=== PATIENT | female | born 1950 | race Caucasian/White ===

== ENCOUNTER 2020-02-05 01:30 | Inpatient (IN) | payer OTHER, SELFPAY ==
[~2020-02-05] VITALS: Ht 152.4 cm; Wt 82.1 kg
[2020-02-05 01:30] VITALS: BP 85/48
--- NOTE | 2020-02-05 01:30 | NUR ---
[facility] RUN #[id number]
--- NOTE | 2020-02-05 01:40 | NUR ---
69 YEAR OLD FEMALE BIBA FROM [facility] FOR COUGH, ALOC, AND UTI. PER EMS PATIENT HAS A UTI AND IS TAKING ANTIBIOTICS FOR IT. PT AOX3 TO NAME, , AND LOCATION, BUT HAS HARD TIME CONCENTRATION AND HAS DIFFICULTY ANSWERING QUESTIONS. PATIENT WITH COUGH AND CONGESTION, POOR HISTORIAN. SPO2 78% ON RA, PT PLACED ON 4L O2 NC. PATIENT BREATHING EVEN AND UNLABORED, LUNGS CLEAR BL, SKIN WARM AND DRY. BED IN LOWEST POSITION, LOCKED, BED RAIL UPX1. PMH - DM2, HYPOTHYROIDISM, HYPERTENSION, ANXIETY, MUSCLE WEAKNESS ALLERGIES - CEPHALEXIN, CODEINE
--- NOTE | 2020-02-05 02:00 | NUR ---
CORONAVIRUS, RSV, AND INFLUENZA SWAB TAKEN
--- NOTE | 2020-02-05 02:10 | NUR ---
bp 83/48, ermd made aware
[2020-02-05] MEDS ORDERED: NACL 0.9% 1,000 ML IV ONE (02:20)
[2020-02-05 02:32] LABS: BASOPHILS % (AUTO) 0.1 % (0.0-2.0); HEMATOCRIT 28.7 % (36-48); LYMPHOCYTES # (AUTO) 1.2 K/uL (2.5-16.5); MEAN CORPUSCULAR HEMOGLOBIN 28 pg (27-31); MEAN CORPUSCULAR HGB CONC 32 g/dL (33-37); MEAN CORPUSCULAR VOLUME 89.9 fL (80-94); MONOCYTES # (AUTO) 0.9 K/uL (0.8-1.0); MONOCYTES % (AUTO) 4.8 % (1.7-9.3); NEUTROPHILS # (AUTO) 15.7 K/uL (1.8-7.7); NEUTROPHILS % (AUTO) 88.2 % (42.2-75.2); PLATELET COUNT (AUTO) 355 K/uL (140-450); RED CELL DISTRIBUTION WIDTH 16.1 % (11.6-13.7)
[2020-02-05 02:39] LABS: C-REACTIVE PROTEIN QUANT 6.1 mg/dL (0.0-0.9)
--- NOTE | 2020-02-05 02:40 | NUR ---
BP 104/32. ERMD MADE AWARE
[2020-02-05 02:45] LABS: LACTATE DEHYDROGENASE 235 U/L (81-234)
[2020-02-05 02:48] LABS: PROTHROMBIN TIME 9.4 secs (10.8-13.4)
[2020-02-05 02:51] LABS: ANION GAP 19.7 (8-16); ASPARTATE AMINOTRANSFERASE 81 U/L (15-37); CARBON DIOXIDE 16.7 mmol/L (21-32); CHLORIDE 103 mmol/L (98-107); CREATININE 2.2 mg/dL (0.6-1.3); GLUCOSE 59 mg/dL (74-106); POTASSIUM 5.4 mmol/L (3.5-5.1); SODIUM SERUM 134 mmol/L (136-145); TOTAL BILIRUBIN 0.2 mg/dL (0.0-1.0)
[2020-02-05 02:56] LABS: LYMPHOCYTES % (AUTO) 6.9 % (20.5-51.1); WHITE BLOOD COUNT (AUTO) 17.9 K/uL (4.8-10.8)
[2020-02-05 03:02] LABS: D-DIMER > 5000 ng/ml (0-400)
--- NOTE | 2020-02-05 03:05 | NUR ---
MULTIPLE ATTEMPTS MADE BY NURSES TO INSERT ANOTHER IV LINE, UNABLE TO GET SECOND IV LINE. ERMD MADE AWARE
[2020-02-05 03:08] LABS: UREA NITROGEN, BLOOD 119 mg/dL (7-18)
--- NOTE | 2020-02-05 03:11 | NUR ---
BP 98/42. ERMD AWARE
[2020-02-05 03:12] LABS: FIBRINOGEN 875 mg/dL (200-400)
[2020-02-05 03:13] LABS: APPEARANCE,URINE CLOUDY (CLEAR); BILIRUBIN,URINE NEGATIVE (NEGATIVE); BLOOD, URINE 1+ (NEGATIVE); COLOR,URINE YELLOW (YELLOW); LEUKOCYTE ESTERASE ,URINE 3+ (NEGATIVE); NITRITE, URINE POSITIVE (NEGATIVE); PH,URINE 8.5 (5.0-9.0); UGLUCOSE NEGATIVE (NEGATIVE)
[2020-02-05 03:15] LABS: RSV NEGATIVE (NEGATIVE)
[2020-02-05 03:25] LABS: RBC,URINE 11-20 (MOD) /HPF (0-5); WBC,URINE TOO MANY TO COUNT /HPF (0-5)
[2020-02-05] MEDS ORDERED: PIPERACILLIN/TAZOBACTAM 3.375 GM in DEXTROSE 5% 50 ML IV ONE (03:30)
[2020-02-05] MEDS ORDERED: DEXTROSE 10% 250 ML IV SCH (03:30)
[2020-02-05] MEDS ORDERED: AZITHROMYCIN 500 MG in DEXTROSE 5% 250 ML IV ONE (03:30)
[2020-02-05] MEDS ORDERED: PIPERACILLIN/TAZOBACTAM 3.375 GM VIAL IV ONE (03:31)
[2020-02-05] MEDS ORDERED: AZITHROMYCIN 500 MG INJ VIAL IV ONE (03:45)
[2020-02-05] MEDS ORDERED: ONDANSETRON 4 MG/2 ML VIAL IVP PRN (04:05)
[2020-02-05] MEDS ORDERED: LORazepam 2 MG/ML VIAL IVP PRN (04:05)
[2020-02-05] MEDS ORDERED: HEPARIN PER PHARMACY MC PRN (04:10)
[2020-02-05] MEDS ORDERED: PIPERACILLIN/TAZOBACTAM 2.25 GM in DEXTROSE 5% 50 ML IV SCH (04:10)
[2020-02-05 05:00] VITALS: BP 96/54
--- NOTE | 2020-02-05 05:00 | NUR ---
RECEIVED PATIENT IN STABLE CONDITION FROM ER VIA [facility] FOR CONTINUITY OF CARE. RESPIRATIONS EVEN, UNLABORED. CONTINUES ON O2 4L VIA NC WITH AN O2SAT 92%. SKIN WARM/DRY AND INTACT. SKIN ASSESSMENT COMPLETED. IV SITE TO LEFT HAND 24G PATENT/INTACT. IV SITE TO LEFT AC 20G PATENT/INTACT, INFUSING FLUIDS WELL. ABDOMEN SOFT, NONTENDER. BOWEL SOUNDS NORMOACTIVE X4 QUADRANTS. ESQUEDA CATHETER PATENT WITH YELLOW URINE DRAINING TO GRAVITY. HOB UP 30 DEGREES. NO C/O PAIN. NO S/SX ACUTE DISTRESS. MRSA SCREEN COMPLETED. ORIENTED PATIENT TO ROOM/STAFF AND CALL LIGHT. SAFETY PRECAUTIONS IN PLACE. ISOLATION PRECAUTIONS OBSERVED. CALL LIGHT WITHIN REACH. WILL CONTINUE TO MONITOR.
--- NOTE | 2020-02-05 05:00 | NUR ---
Patient will be admitted to care of DR NAVARRO. Admited to TELE. Will go to room 117A. Belongings list completed. Report to JUNIOR MADISON.
[2020-02-05] MEDS ORDERED: LISI-420 PO (05:06)
[2020-02-05] MEDS ORDERED: METF850T PO (05:06)
[2020-02-05] MEDS ORDERED: ORE25 PO (05:06)
[2020-02-05] MEDS ORDERED: NITR100C7 PO (05:06)
[2020-02-05] MEDS ORDERED: MELA3TAB56 PO (05:06)
[2020-02-05] MEDS ORDERED: ALBU3SOL83 IH (05:06)
[2020-02-05] MEDS ORDERED: SYN.075 PO (05:06)
[2020-02-05] MEDS ORDERED: MULT1SGL58 PO (05:06)
[2020-02-05] MEDS ORDERED: INSU3INS SQ (05:06)
[2020-02-05] MEDS ORDERED: MAGN400S29 PO (05:06)
[2020-02-05] MEDS ORDERED: GLIP10TA3 PO (05:06)
[2020-02-05] MEDS ORDERED: MULT-153 PO (05:06)
--- NOTE | 2020-02-05 05:30 | NUR ---
PATIENT CONTINUES TO REMOVE OXYGEN TUBING. CONTINUE TO REORIENT WITH LITTLE SUCCESS. WILL MAKE FREQUENT ROUNDS ON PATIENT TO ENSURE EFFECTIVE GAS EXCHANGE.
[2020-02-05] MEDS: LACTATED RINGERS 1,000 ML IV SCH ×2 (07:00→20:31)
--- NOTE | 2020-02-05 07:00 | NUR ---
ENDORSED PATIENT IN STABLE CONDITION TO AM SHIFT NURSE FOR CONTINUITY OF CARE.
--- NOTE | 2020-02-05 07:01 | NUR ---
RECEIVED REPORT FROM FOOD COUNTER WORKER NURSE ANJELICA FOR CONTINUITY OF CARE. PT IN STABLE CONDITION. RESPIRATIONS EVEN AND UNLABORED,02 4L VIA NC. IV INTACT AND PATENT. SAFETY MEASURES IN PLACE. BED IN LOW POSITION. BED ALARM ON. CALL LIGHT AT BEDSIDE. WILL CONTINUE TO MONITOR.
[2020-02-05 08:00] VITALS: BP 98/56
--- NOTE | 2020-02-05 08:57 | NUR ---
PATIENT HAS BEEN SCREENED AND CATEGORIZED MODERATE NUTRITION RISK. PATIENT WILL BE SEEN WITHIN 3-5 DAYS OF ADMISSION. 02/07/20 02/09/[address]
--- NOTE | 2020-02-05 09:00 | NUR ---
TORB TRUMAN ARAMBULA APPLY SOFT WRIST RESTRAINT TO PREVENT DISRUPTION OF MEDICAL CARE. PT IN STABLE CONDITION.
--- NOTE | 2020-02-05 09:35 | NUR ---
Electrotype Servicer Note: Basic Screen: Yes High Risk DC Screen Yes Name: PEDRO PABLO AGGARWAL Home Relationship: NEPHEW/POA Pre-Admission Living Arrangements: SNF Other: [facility] Prior ADL Total/Dependent Current Home Health Name/Tel: N/A Current DME/02 Name/Tel: HOSPITAL BED Current Hospice Name/Tel: N/A Current Dialysis Name/Tel: N/A Healthcare Decision Maker: Next of Kin Other: PEDRO PABLO AGGARWAL Advance Directive No Physician Orders for Life Sustaining Treatment Form No Patient/Family Have Educational Needs No Discipline: Case Mgt/Social Svcs Tentative Discharge Plan/Destination: SNF/ECF Other: [facility] Tentative Discharge Plan Summary: Patient is a 69-year-old female admitted for pneumonia. Patient has PMHX of generalized weakness, hypertension, major depressive dsiorder, and DM type 2. Patient was admitted from [facility]. SW contacted Violet from [facility], patient's nurse [phone]. Per Violet, patient is skilled nursing and currently on a bed hold. Violet reported that patient requires total assistance and is bed bound. Violet stated that patient is alert/oriented at baseline and that patient's POA is patient's nephew Pedro Pablo Aggarwal [phone]. Tentative discharge plan is for patient to return to [facility]. No further needs identified. Signature: GUICHO Connor Date: Feb 05, 2020 Time: 09:33
[2020-02-05] MEDS: hePARIN / DEXT 5% PREMIX 250 ML IV SCH ×3 (10:18→23:49)
--- NOTE | 2020-02-05 11:33 | NUR ---
PT CLEANED AND CHANGED AT THIS TIME. PT TOLERATED WELL. WILL CONTINUE TO MONITOR. BED IN LOW POSITION. BED ALARM ON. CALL LIGHT AT BEDSIDE. WILL CONTINUE TO MONITOR.
[2020-02-05 12:00] VITALS: BP 97/54
--- NOTE | 2020-02-05 13:01 | NUR ---
PATIENT LYING IN BED SLEEP AT THIS TIME. RESPIRATIONS EVEN AND UNLABORED. PATIENT IN STABLE CONDITION. BED IN LOW POSITION. BED ALARM ON. CALL LIGHT AT BEDSIDE. WILL CONTINUE TO MONITOR.
--- NOTE | 2020-02-05 13:57 | NUR ---
DISCHARGE PLANNING: THIS IS A 69 Y/O FEMALE PATIENT FROM [facility], WHO WAS BROUGHT IN DUE TO COUGH AND CONGESTION. PAST MEDICAL HISTORY INCLUDE UTI. INITIAL DIAGNOSIS OF PNEUMONIA. CURRENT LABS INCLUDE WBC 17.9, H/H 9.0/28.7, NA/K 134/5.4, BUN/CREA 119/2.2 AND ALB 2.0. COVID 19 PENDING. NEGATIVE FOR RSV ANTIGEN AND INF A AND B. ON AZITHROMYCIN. NO CONSULTS YET AT THIS TIME. DC PLAN BACK TO [facility] ONCE STABLE. Addendum: 02/06/20 at 1200 by Xiomara Hathaway KELLY MIX [facility] UPDATED OF THE PATIENT'S CONDITION. SHE PROVIDED MO AUTH [id number] FOR [facility] IF IN CASE THE PATIENT WILL BE DC'D. SHE ALSO REQUESTED CLINICALS AND DC ORDER ONCE AVAILABLE. GARY IS CONSULTED FOR BRENDA - BUN/CREA 114/1.9. VQ SCAN SHOWED LOW PROBABILITY FOR PULMONARY EMBOLUS. SEEN BY ID - CONTINUE CONTACT AND DROPLET PRECAUTIONS. COVID 19 TEST STILL PENDING. ON LEVOFLOXACIN AND CLINDAMYCIN. ON HEPARIN DRIP - PTT 127.5 AND D DIMER >5000. DC PLAN BACK TO [facility] ONCE STABLE. Addendum: 02/06/20 at 1444 by Xiomara Hathaway CM COVID TEST CAME BACK POSITIVE. LILIAM CRAWFORD AND KELLY MIX [facility] MADE AWARE. Addendum: 02/06/20 at 1503 by Xiomara Hathaway CM OZZY REQUESTED COPY OF POSITIVE COVID RESULTS. RESULTS SENT. Addendum: 02/07/20 at 1317 by Xiomara Hathaway CM COVID POSITIVE. CURRENT LABS INCLUDE WBC 12.3, H/H 8.0/24.9, NA/K 145/4.6, BUN/CREA 93/1.6 AND MAG 1.3. ON PLAQUENIL, ZITHROMAX AND HEPARIN DRIP. ON OXYMIZER AT 6 LPM, O2 SAT 99%. PULMO, NEPHRO AND ID CONSULTS IN PLACE. DC PLAN PENDING ON PATIENT'S RESPONSE TO TREATMENT. Addendum: 02/07/20 at 1319 by Xiomara Hathaway CM SEEN BY NEPHRO-NO ACUTE REQUIREMENT FOR DIALYSIS AT THIS TIME. SEEN BY DIMAS-CONTINUE SUPPLEMENTAL O2. KEEP O2 SATS 90-94%, AVOID OVER OXYGENATION. Addendum: 02/07/20 at 1559 by Xiomara BRobi Gilmoredijo CM DR. NAVARRO SPOKE TO US, STATING THAT HE WANTS TO DISCHARGE THE PATIENT BACK TO THE FACILITY. I INFORMED HIM THAT JARED CRAWFORD IS REQUESTING 2 NEGATIVE TESTS BEFORE ACCEPTING THE PATIENT BACK. HE STATED "I AM THE DOCTOR AND YOU'RE JUST CALENDER WIND UP TENDER. PATIENT WILL BE POSITIVE FOR 2 WEEKS AND THERE IS NO SUCH TREATMENT FOR COVID." KELLY OF [facility] MADE AWARE, SHE STATED SHE WILL REACH OUT TO THE PLACEMENT TEAM AND WILL GET BACK TO ME WHAT THEY SAY. WILL FOLLOW UP. Addendum: 02/07/20 at 1603 by Xiomara Hathaway CM PRIMARY RN ADDI MADE AWARE AND RECOMMENDED TO CLARIFY WITH ID IF OK TO DISCHARGE. Addendum: 02/08/20 at 5244 by Xiomara Hathaway CM CONTACTED [facility] AT [phone], ABLE TO SPEAK TO RICKY. SHE PROVIDED ME THEIR COVID ADMISSION NUMBER AT [phone]. CONTACTED THE PROVIDED NUMBER, ABLE TO SPEAK TO [facility]. SHE CONFIRMED THAT THEY ARE ABLE TO TAKE COVID POSITIVE PATIENTS HOWEVER NOT ON VENTS YET. SHE PROVIDED ME WITH FAX NUMBER [phone] TO SEND REFERRAL. REFERRAL SENT. WILL FOLLOW UP. Addendum: 02/08/20 at 1417 by Xiomara Hathaway CM PER [facility], THEY ARE ABLE TO ACCEPT PATIENT ONCE READY FOR DISCHARGE. PATIENT WILL GO TO ROOM 204A UNDER DR. VALENCIA. KELLY OF [facility] MADE AWARE. SHE PROVIDED ME WITH AUTH [id number] FOR SNF AND FOR TRANSPORT ([facility], OR [facility], AND/OR [facility] ) [id number]. CHARGE NURSE MADE AWARE AND REQUESTED TO CALL THIS EXPERIMENTAL MECHANIC ELECTRICAL ONCE DR. NAVARRO AND/OR DR FISHER MAKE THEIR ROUNDS. Addendum: 02/08/20 at 1647 by Xiomara Hathaway CM RECEIVED AN ORDER FOR HOSPICE EVALUATION WITH [facility]. CLARIFIED ORDER WITH DR. NAVARRO, "HE STATED MAYBE IN ONE TO 2 DAYS." HE ALSO STATED THAT HE SPOKE TO THE THE PATIENT'S NEPHEW. CONTACTED PATIENT'S NEPHEW [phone] TO DISCUSS DC PLANNING AND IS IN AGREEMENT. HE STATED HE WANTS THE PATIENT TO COME HOME. HE ALSO STATED THAT HE DOES NOT WANT THE PATIENT TO GO BACK TO [facility], WHEN ASKED WHY HE STATED "WE JUST DO NOT LIKE THE PLACE." I ALSO ASKED HIM IF HE IS AWARE THAT THE PATIENT IS POSITIVE FOR COVID. ALL QUESTIONS AND CONCERNS ANSWERED. I ALSO INFORMED HIM THAT WE HAVE AN ACCEPTING FACILITY [facility] IN [place]. HE STATED HE IS OK WITH THAT WELL. HE ALSO STATED THAT HE IS THE MEDICAL DECISION MAKER AND CAN FAX ME A COPY. PROVIDED HIM OF OUR FAX NUMBER. CONTACTED [facility] AT [phone], ABLE TO SPEAK TO GEORGE. SHE PROVIDED ME WITH THE FAX NUMBER [phone] TO SEND REFERRAL. CLINICALS SENT. Addendum: 02/08/20 at 1652 by Xiomara Hathaway CM ORDER SENT TO [facility]. Addendum: 02/10/20 at 0837 by Jose Yin OTÑA followed up with [facility] [phone]. TOÑA left VM. TOÑA will follow up. Addendum: 02/10/20 at 1116 by Jose PEDRAZA George contacted TOÑA and stated that patient's family requested COVID test. TOÑA spoke with Charge Nurse Dalia who stated that it has not been 7 days since last test. Patient was last tested on 02/06/2020 George stated that family requested results on second test before patient is discharged. TOÑA will follow up. Addendum: 02/10/20 at 1425 by Jose PEDRAZA TOÑA spoke with Kelly from [facility]. Per Kelly, patient will go to [facility]. TOÑA spoke with patient's niece, Ly. Ly stated that she is unable to take patient home until patient shows two negative tests for COVID. Addendum: 02/10/20 at 1431 by Jose Yin TOÑA contacted Naren from [facility] [phone]. TOÑA left VM to Naren stating that patient will not be discharged today due to blood transfusion. Addendum: 02/11/20 at 1125 by Xiomara Hathaway CM DC PLAN DISCUSSED WITH DR. THOMAS, HE STATED OK TO DC TO SNF. CONTACTED [facility], SHE STATED BED IS AVAILABLE STILL. INFORMED HER THAT THE FAMILY WANTS TO TAKE THE PATIENT HOME WITH HOSPICE ONCE DONE WITH TREATMENT AND TESTED NEGATIVE FOR COVID. CONTACTED PATIENT'S NEPHEW [facility] AT [phone], NO ANSWER LEFT MESSAGE. CONTACTED GEORGE [facility], SHE STATED SHE WAS ABLE TO SPEAK TO THE NIECE. SHE STATED THAT PER NIECE REGARDLESS OF THE COVID RESULTS, THEY ARE WILLING TO TAKE THE PATIENT HOME, LONG THEY ARE AWARE AND SO THEY CAN PREPARE SINCE THEY HAVE KIDS AT HOME. CONTACTED PATIENT'S NEPHEW AGAIN, NO ANSWER. LEFT MESSAGE. Addendum: 02/11/20 at 1438 by Xiomara Hathaway CM CONTACTED PATIENT'S NEPHEW AGAIN, NO ANSWER. LEFT MESSAGE. DR. MARTHA JONES. CALLED BACK INFORMED HIM THAT THE ORDER FOR SNF IS NOT IN YET. HE STATED TO CONTACT ID FOR ANTIBIOTICS AND FOR HOW LONG. CHARGE NURSE JACQUES MADE AWARE. Addendum: 02/11/20 at 1449 by Xiomara Hathaway CM FOUND ANOTHER CONTACT INFO FROM THE DPOA FOR THE PATIENT'S NEPHEW [phone]. ABLE TO SPEAK TO LY KRAFT (ALTERNATIVE DPOA) AND IS IN AGREEMENT FOR PATIENT TO GO TO A SNF. KELLY OF [facility] MADE AWARE. Addendum: 02/11/20 at 1520 by Xiomara Hathaway CM WILL CALL TRANSPORT WAS SET UP WITH [facility]. Addendum: 02/11/20 at 1545 by Xiomara Hathaway CM UPDATED CLINICALS AND ORDER FAXED TO [facility] AT [phone]. Addendum: 02/11/20 at 1555 by Xiomara Hathaway PER MELI MIX [facility], [facility] SPRINKLER SERVICER WILL BE AT 1900. [facility] OF [facility] AND PRIMARY GRICELDA GRJIALVA MADE AWARE. LEFT MESSAGE TO PATIENT'S NEPHEW [facility] AT [phone].
--- NOTE | 2020-02-05 14:02 | NUR ---
PATIENT SLEEP AT THIS TIME. RESPIRATIONS EVEN AND UNLABORED. PATIENT IN STABLE CONDITION. BED IN LOW POSITION. BED ALARM ON. CALL LIGHT AT BEDSIDE. WILL CONTINUE TO MONITOR
[2020-02-05 16:00] VITALS: BP 88/48
--- NOTE | 2020-02-05 16:49 | NUR ---
PATIENT LOOKING AROUND. ASKED IF SHE WOULD LIKE TO WATCH TV, PATIENT REFUSED. PATIENT IN STABLE CONDITION. BED IN LOW POSITION. BED ALARM ON. CALL LIGHT AT BEDSIDE. WILL CONTINUE TO MONITOR
[2020-02-05] MEDS ORDERED: LEVOFLOXACIN 500 MG/D5W PREMIX 100 ML IV SCH (17:00)
--- NOTE | 2020-02-05 17:11 | NUR ---
OFF UNIT FOR VQ SCAN AT THIS TIME. PATIENT IN STABLE CONDITION.
--- NOTE | 2020-02-05 18:03 | NUR ---
BACK ON UNIT AFTER VQ SCAN. PATIENT IN STABLE CONDITION. BED IN LOW POSITION. BED ALARM ON. CALL LIGHT AT BEDSIDE. WILL CONTINUE TO MONITOR
--- NOTE | 2020-02-05 19:15 | NUR ---
GAVE REPORT TO NICK FOR CONTINUITY OF CARE PT IN STABLE CONDITION.
--- NOTE | 2020-02-05 19:16 | NUR ---
RECEIVED BEDSIDE REPORT FROM DAY RN FOR CONTINUITY OF CARE. PT IS AAOX2-3. PT IN STABLE CONDITION. RESPIRATIONS EVEN AND UNLABORED,02 4L VIA NC. PT WITH 2 IV L HAND 24G INFUSING HEP DRIP AT 11ML/H. LAC 20G INFUSING IV ABX PER ORDERS. PT IS R/O COVID. ISOLATION SIGN AT DOOR. PT SOFT WRIST RESTRAINTS ON R HAND D/T PULLING LINES. SKIN IS INTACT. ESQUEDA CATH DRAINING YELLOW URINE. SAFETY MEASURES IN PLACE. BED IN LOW POSITION. BED ALARM ON. CALL LIGHT AT BEDSIDE. WILL CONTINUE TO MONITOR.
[2020-02-05 20:00] VITALS: BP 83/41
[2020-02-05] MEDS: CLINDAMYCIN 600 MG in DEXTROSE 5% 50 ML IV SCH (20:33)
--- NOTE | 2020-02-05 20:33 | NUR ---
IV ABX NOW INFUSING PER ORDERS. ALL SAFETY MEASURES ARE IN PLACE.
--- NOTE | 2020-02-05 20:55 | NUR ---
PAGED NUCLEAR EQUIPMENT TEST ENGINEER MD NARVAEZ FOR B/P 83/41 HR 79 WILL F/U NEW ORDERS.
[2020-02-05] MEDS ORDERED: NACL 0.9% 500 ML IV SCH (21:00)
[2020-02-05] MEDS ORDERED: MIDODRINE 5 MG TAB ONE (21:39)
--- NOTE | 2020-02-05 21:41 | NUR ---
ADMINISTERED NS 500 BOLUS AND MIDORINE 10MG FOR B/P 83/41 HR 79
--- NOTE | 2020-02-05 23:44 | NUR ---
PTT 31.1 PER PROTOCOL ADMINISTERED 5100U BOLUS AND INCREASED DRIP BY 250U. DRIP NOW INFUSING AT 13.5 WILL ORDER PTT DRAW. VITAL SIGNS STABLE B/P:93/48 HR 76. ALL NEEDS MET. WILL CONTINUE TO MONITOR.
[2020-02-06] VITALS (7 sets, daily range): BP systolic 86–105; BP diastolic 42–54
--- NOTE | 2020-02-06 02:15 | NUR ---
PT IS SLEEPING COMFORTABLY IN BED WITH EYES CLOSED. CHEST RISE AND FALL NOTED. ALL SAFETY MEASURES ARE IN PLACE. CALL LIGHT IS WITHIN REACH.
[2020-02-06] MEDS ORDERED: AZITHROMYCIN 500 MG in DEXTROSE 5% 250 ML IV SCH (05:00)
--- NOTE | 2020-02-06 05:00 | NUR ---
ADMINISTERED MIDROINE 10MG FOR LOW B/P 86/51 HR 70. PT IS ASYMPTOMATIC. WILL CONTINUE TO MONITOR.
[2020-02-06] MEDS ORDERED: CRUSHER, PILL MC ONE (05:05)
[2020-02-06] MEDS: MIDODRINE 5 MG TAB PO SCH ×4 (05:07→23:00)
[2020-02-06] MEDS: CLINDAMYCIN 600 MG in DEXTROSE 5% 50 ML IV SCH (05:07)
--- NOTE | 2020-02-06 06:00 | NUR ---
RECHECK B/P 93/52 HR 70. ALL NEEDS MET AT THIS TIME. CALL LIGHT IS WITHIN REACH. WILL CONTINUE TO MONITOR.
[2020-02-06 06:26] LABS: HEMATOCRIT 26.9 % (36-48); HEMOGLOBIN 8.4 g/dL (12.0-16.0); MEAN CORPUSCULAR HEMOGLOBIN 28 pg (27-31); MEAN CORPUSCULAR HGB CONC 31 g/dL (33-37); MEAN CORPUSCULAR VOLUME 90.4 fL (80-94); PLATELET COUNT (AUTO) 347 K/uL (140-450); RED BLOOD CELL COUNT(AUTO) 2.98 MIL/uL (4.20-5.40); RED CELL DISTRIBUTION WIDTH 16.7 % (11.6-13.7); WHITE BLOOD COUNT (AUTO) 14.5 K/uL (4.8-10.8)
--- NOTE | 2020-02-06 07:10 | NUR ---
SHIFT REPORT RECEIVED FROM METAL FURNITURE ASSEMBLER NURSE. PT IS IN BED SLEEPING BUT RESPONSIVE TO VERBAL STIMULI. PT IS ON HEPARIN DRIP. PT IS ON O2 4L NC. SATURATING AT 92%. SAFETY MEASURES IN PLACE. WILL CONTINUE TO MONITOR. CALL LIGHT IN REACH.
--- NOTE | 2020-02-06 07:10 | NUR ---
GAVE BEDSIDE REPORT TO DAY RN. PT ENDORSED IN STABLE CONDITION.
[2020-02-06 07:13] LABS: ALBUMIN 1.8 g/dL (3.4-5.0); ANION GAP 16.5 (8-16); ASPARTATE AMINOTRANSFERASE 59 U/L (15-37); CARBON DIOXIDE 17.8 mmol/L (21-32); CHLORIDE 107 mmol/L (98-107); CREATININE 1.9 mg/dL (0.6-1.3); GLUCOSE 188 mg/dL (74-106); POTASSIUM 5.3 mmol/L (3.5-5.1); SODIUM SERUM 136 mmol/L (136-145); TOTAL BILIRUBIN 0.2 mg/dL (0.0-1.0)
[2020-02-06 07:25] LABS: UREA NITROGEN, BLOOD 114 mg/dL (7-18)
[2020-02-06 08:53] LABS: BASOPHILS % (MANUAL) 0 % (0-2); EOSINOPHILS % (MANUAL) 0 % (0-4); LYMPHOCYTES % (MANUAL) 9 % (20-46); MONOCYTES % (MANUAL) 5 % (5-12)
[2020-02-06] MEDS: hePARIN / DEXT 5% PREMIX 250 ML IV SCH (09:16)
[2020-02-06] MEDS: LACTATED RINGERS 1,000 ML IV SCH (09:17)
--- NOTE | 2020-02-06 09:30 | NUR ---
PT WAS STARTED ON HEPARIN DRIP. PTT REORDER IN PLACE. WILL CONTINUE TO MONITOR. CALL LIGHT IN REACH.
--- NOTE | 2020-02-06 11:40 | NUR ---
PT IS RESTING IN BED AT THIS TIME. O2 SATS AT 96%. SAFETY MEASURES IN PLACE. WILL CONTINUE TO MONITOR. CALL LIGHT IN REACH.
[2020-02-06] MEDS ORDERED: SODIUM POLYSTYRENE 15 GM/60 ML UDBTL PO SCH (13:00)
--- NOTE | 2020-02-06 13:30 | NUR ---
NOTED WITH SACRAL WOUND. PHOTOGRAPH TAKEN. WOUND CARE NURSE NOTIFIED.
[2020-02-06] MEDS: SODIUM BICARBONATE 8.4% 50 MEQ in DEXT 5% / NACL 0.45% 1,000 ML IV SCH (14:17)
[2020-02-06] MEDS ORDERED: LEVOFLOXACIN 250 MG/D5 PREMIX 50 ML IV SCH (17:00)
[2020-02-06] MEDS: AZITHROMYCIN 250 MG TAB PO SCH (17:10)
--- NOTE | 2020-02-06 17:34 | NUR ---
KAREN RAMIREZ for low BP
--- NOTE | 2020-02-06 17:40 | NUR ---
DR QUINTEROS CALLED BACK ORDERS RECEIVED FOR NS BOLUS DUE TO LOW BLOOD PRESSURE.
[2020-02-06] MEDS ORDERED: NACL 0.9% 1,000 ML IV ONE (17:45)
--- NOTE | 2020-02-06 19:24 | NUR ---
SHIFT REPORT GIVEN TO CLINICAL REVIEW NURSE NURSE. NS BOLUS INFUSING. SAFETY MEASURES IN PLACE.
--- NOTE | 2020-02-06 19:25 | NUR ---
RECEIVED BEDSIDE REPORT FROM DAY SHIFT NURSESAHARA FOR CONTINUITY OF CARE. PT HAS RESPIRATION EVEN AND UNLABORED,O2 4L VIA NC. PT WITH 2 IV L HAND 24G INFUSING HEP DRIP. RA 20G, NS BOLUS. DROPLET, CONTACT ISOLATION FOR COVID19 POSITIVE. PT SOFT WRIST RESTRAINTS ON R HAND D/T PULLING LINES. PRESSURE ULCER ON SACRAL AREA. ESQUEDA CATH DRAINING YELLOW URINE. SAFETY MEASURES IN PLACE. BED IN LOW POSITION. BED ALARM ON. CALL LIGHT AT BEDSIDE. WILL CONTINUE TO MONITOR.
[2020-02-06] MEDS: HYDROXYCHLOROQUINE 200 MG TAB PO SCH (20:35)
--- NOTE | 2020-02-06 20:35 | NUR ---
GIVEN PLAQUENIL MD ORDERED, PT TOLERATED WELL.
[2020-02-06] MEDS ORDERED: MIDODRINE 5 MG TAB PO SCH (21:00)
[2020-02-06] MEDS ORDERED: HYDROXYCHLOROQUINE 200 MG TAB PO SCH (21:00)
--- NOTE | 2020-02-06 21:30 | NUR ---
PT SLEEPING IN BED COMFORTABLY. NO ACUTE DISTRESS NOTED.
--- NOTE | 2020-02-06 23:00 | NUR ---
GIVEN MIDODRINE MD ORDERED. PT TOLERATED WELL.
--- NOTE | 2020-02-06 23:30 | NUR ---
RECEIVED CALL FROM LAB FOR PTT 59.9. NOT REPORTED TO D/T WITHIN THERAPEUTIC RANGE. ORDERED 24HR PTT. HEPARIN DRIP RATE KEPT IN SAME.
[2020-02-07] VITALS: BP 96/49
--- NOTE | 2020-02-07 00:05 | NUR ---
VS CHECKED, WITHIN PT'S BASELINE. WILL CONTINUE TO MONITOR.
--- NOTE | 2020-02-07 01:05 | NUR ---
WOUND CARE PROVIDED, PT TOLERATED WELL.
[2020-02-07] MEDS: SODIUM BICARBONATE 8.4% 50 MEQ in DEXT 5% / NACL 0.45% 1,000 ML IV SCH ×2 (03:27→08:49)
--- NOTE | 2020-02-07 03:58 | NUR ---
CHANGED LINEN, CHANGED BED TO WOUND BED. VS CHECKED, WITHIN PT'S BASELINE
[2020-02-07 04:00] VITALS: BP 17/51
[2020-02-07] MEDS: MIDODRINE 5 MG TAB PO SCH ×4 (05:05→23:57)
--- NOTE | 2020-02-07 05:05 | NUR ---
GIVEN MIDODRINE MD ORDERED. PT TOLERATED WELL.
--- NOTE | 2020-02-07 06:50 | NUR ---
PT IN STABLE CONDITION. WILL ENDORSE PT TO DAY SHIFT NURSE FOR CONTINUOUS CARE.
--- NOTE | 2020-02-07 07:10 | NUR ---
RECEIVED PT. FROM BANK SECRECY ACT OFFICER NURSEGUSTAVO, FOR CONTINUITY OF CARE. PT. IS AWAKE AND IN BED. PT. HAS RESPIRATION EVEN AND UNLABORED WITH O2 4L VIA NC. PT WITH 2 IV L HAND 24G INFUSING HEP DRIP. RA 20G WITH SODIUM BICARBONATE RUNNING AT 75ML/HR. DROPLET, CONTACT ISOLATION FOR COVID19 POSITIVE. PT SOFT WRIST RESTRAINTS ON R HAND D/T PULLING LINES. PRESSURE ULCER ON SACRAL AREA. ESQUEDA CATH DRAINING YELLOW URINE. FALL, ASPIRATION, WOUND PRECAUTIONS IN PLACE. BED IN LOW POSITION. BED ALARM ON. CALL LIGHT AT BEDSIDE. WILL CONTINUE TO MONITOR.
[2020-02-07 08:00] VITALS: BP 119/65
--- NOTE | 2020-02-07 09:02 | NUR ---
FNS CONSULT FOR WOUNDS/PRESSURE ULCERS WAS RECEIVED BY FNS. RD WILL COMPLETE AN INITIAL NUTRITION ASSESSMENT WITHIN 1-[address]
[2020-02-07 09:20] LABS: EOSINOPHILS % (AUTO) 0.1 % (0.0-4.0); HEMATOCRIT 24.9 % (36-48); LYMPHOCYTES # (AUTO) 0.9 K/uL (2.5-16.5); LYMPHOCYTES % (AUTO) 7.1 % (20.5-51.1); MEAN CORPUSCULAR HEMOGLOBIN 28 pg (27-31); MEAN CORPUSCULAR HGB CONC 32 g/dL (33-37); MEAN CORPUSCULAR VOLUME 88.9 fL (80-94); MONOCYTES # (AUTO) 0.6 K/uL (0.8-1.0); MONOCYTES % (AUTO) 4.8 % (1.7-9.3); NEUTROPHILS # (AUTO) 10.8 K/uL (1.8-7.7); PLATELET COUNT (AUTO) 367 K/uL (140-450); RED BLOOD CELL COUNT(AUTO) 2.81 MIL/uL (4.20-5.40); RED CELL DISTRIBUTION WIDTH 16.1 % (11.6-13.7); WHITE BLOOD COUNT (AUTO) 12.3 K/uL (4.8-10.8)
--- NOTE | 2020-02-07 09:28 | NUR ---
Received pt from manager shift. Patient was switched to 6L oxymizer from 5L NC due to poor saturation and complying with Dr order of saturation greater than 90%.
[2020-02-07 09:41] LABS: ANION GAP 16.7 (8-16); CARBON DIOXIDE 22.9 mmol/L (21-32); CHLORIDE 110 mmol/L (98-107); CREATININE 1.6 mg/dL (0.6-1.3); GLUCOSE 257 mg/dL (74-106); MAGNESIUM 1.3 mg/dL (1.8-2.4); POTASSIUM 4.6 mmol/L (3.5-5.1); SODIUM SERUM 145 mmol/L (136-145)
[2020-02-07] MEDS: HYDROXYCHLOROQUINE 200 MG TAB PO SCH ×2 (09:46→20:24)
[2020-02-07] MEDS: FAMOTIDINE 20 MG/2 ML VIAL IVP SCH (09:46)
[2020-02-07 09:56] LABS: UREA NITROGEN, BLOOD 93 mg/dL (7-18)
--- NOTE | 2020-02-07 10:00 | NUR ---
MORNING MEDICATIONS GIVEN. NO SIGNS OF DISTRESS NOTED. BP 117/69, HR 86. NEW SODIUM BICARBONATE IVF GIVEN AND HEPARIN DRIP IS CONTINUED WITH NO CHANGE IN RATE. PT. IS CLEANED, CHANGED AND TURNED. SACRAL PRESSURE WOUND IS CLEANED AND OPTIFOAM DRESSING IS CHANGED. PT. DOES NOT VERBALIZES ANY PAIN. WILL CONTINUE TO MONITOR.
[2020-02-07] MEDS: hePARIN / DEXT 5% PREMIX 250 ML IV SCH (10:27)
--- NOTE | 2020-02-07 10:45 | NUR ---
PAGED DR. NAVARRO FOR CRITICAL LEVELS OF MAGNESIUM OF 1.3 AND BUN 93. WILL CONTINUE TO MONITOR.
--- NOTE | 2020-02-07 10:55 | NUR ---
RECEIVED CALL FROM DR. NAVARRO FOR CRITICAL LAB VALUES. NEW ORDERS TO GIVE MAGNESIUM IV ONCE AND REPEAT OF COVID-19 TEST. READ BACK AND VERIFIED. WILL FOLLOW THROUGH.
[2020-02-07] MEDS ORDERED: MAG SULF 2000 MG/WATER PREMIX 50 ML IV SCH ×2 (11:15→12:00)
--- NOTE | 2020-02-07 11:15 | NUR ---
INFORMED CHARGED NURSE, RONNIE, AND DR. NARVAEZ ABOUT NEW ORDER FOR REPEAT COVID-[address] NARVAEZ SUGGESTS TO REPEAT TEST AFTER 72 HOURS IF ASYMPTOMATIC AND TO CANCEL STAT ORDER. WILL FOLLOW THROUGH
[2020-02-07 12:00] VITALS: BP 123/83
--- NOTE | 2020-02-07 13:00 | NUR ---
V/S TAKEN BP 123/83, HR 85, O2 STAT 99%, TEMP 98.1F, RR 17 AND PT. VERBALIZES NO PAIN. PT. IS IN BED AND AWAKE. PT. IS TURNED. WILL CONTINUE TO MONITOR.
--- NOTE | 2020-02-07 13:10 | NUR ---
AFTERNOON MEDICATIONS GIVEN. NO SIGNS OF DISTRESS NOTED. BP 123/83, HR 85. WILL CONTINUE TO MONITOR.
[2020-02-07] MEDS: AZITHROMYCIN 250 MG TAB PO SCH (13:12)
--- NOTE | 2020-02-07 15:47 | NUR ---
02/07/[address] INITIAL ASSESSMENT COMPLETED PLEASE REFER TO NUTRITION ASSESSMENT UNDER CARE ACTIVITY FOR ESTIMATED NUTRITIONAL NEEDS. 1. RECOMMEND SWALLOW EVALUATION D/T REPORTED ASPIRATION BY RN 2. RECOMMEND ENSURE CLEAR TID 3. RECOMMEND VITAMIN C 500 MG BID, MULTIVITAMIN QD AND ZINC SULFATE 220 MG X 14 DAYS 4. PATIENT FOLLOWS NA 2GM CCHO DIET WITH REGULAR TEXTURE AND THIN LIQUIDS AT LONG-TERM 5. RD TO FOLLOW-UP 2-3 DAYS, HIGH RISK NIKOLAI ROY RD
[2020-02-07 16:00] VITALS: BP 107/78
--- NOTE | 2020-02-07 16:00 | NUR ---
SUPERVISOR OFFSET PLATE PREPARATION, RADHA, CALLED TO CONFIRM IF PT. IS ABLE TO DISCHARGE TO SNF FACILITY WITH DR. FISHER. WILL ENDORSE AND FOLLOW THROUGH.
--- NOTE | 2020-02-07 16:05 | NUR ---
PAGED DR. FISHER ABOUT TREATMENT OF POSITIVE UA CULTURE OF PROTEUS MIRABILIS PER SUGGESTION OF DR. NAVARRO. WILL CONTINUE TO MONITOR.
--- NOTE | 2020-02-07 16:09 | NUR ---
DR. FISHER BY THE BEDSIDE. NEW ORDERS TO GIVE CEFTRIAXONE IV FOR PROTEUS MIRABILIS POSITIVE AND MONITOR FOR REACTION. WILL FOLLOW THROUGH AND CONTINUE TO MONITOR.
[2020-02-07] MEDS ORDERED: EPINEPHrine PFS 0.1 MG/ML SYR IVP PRN (17:00)
--- NOTE | 2020-02-07 17:30 | NUR ---
CEFTRIAXONE IV GIVEN, MONITORED FOR REACTION BY BEDSIDE. NO REACTION NOTED. DINNER IS GIVEN. WILL CONTINUE TO MONITOR.
--- NOTE | 2020-02-07 19:24 | NUR ---
ENDORSED TO MOTORCOACH OPERATOR NURSE, SUSANA, FOR CONTINUITY OF CARE.
--- NOTE | 2020-02-07 19:25 | NUR ---
RECEIVED REPORT FROM DAY SHIFT NURSE. PLAN OF CARE DISCUSSED. PATIENT IN BED RESTING. UNABLE TO MAKE NEEDS KNOWN. O2 6LPM/OXIMIZER IN PLACE. IV ACCESS ON R AND L HAND CLEAN AND INTACT. FC DRAINING WELL. NO S/SX PAIN OR DISCOMFORT AT THIS TIME. RESPIRATIONS EVEN AND UNLABORED. SAFETY MEASURES IN PLACE. WILL CONTINUE TO MONITOR.
[2020-02-07 20:00] VITALS: BP 121/60
--- NOTE | 2020-02-07 20:25 | NUR ---
SCHEDULED MEDICATION GIVEN ORDERED. VITAL SIGNS STABLE. O2 95%. RESPIRATIONS EVEN AND UNLABORED. NO S/SX OF DISTRESS NOTED. SAFETY MEASURES IN PLACE. WILL CONTINUE TO MONITOR.
--- NOTE | 2020-02-07 23:57 | NUR ---
VITAL SIGNS STABLE. SCHEDULED MEDICATIONS GIVEN. PERINEAL CARE DONE. WOUND DRESSING CHANGED. PATIENT TOLERATED CARE GIVEN. NO S/SX OF DISTRESS AT THIS TIME. O2 SAT 97%. RESPIRATIONS EVEN AND UNLABORED. SAFETY MEASURES IN PLACE. WILL CONTINUE TO MONITOR.
[2020-02-08] VITALS: BP 110/52
[2020-02-08] MEDS: hePARIN / DEXT 5% PREMIX 250 ML IV SCH ×2 (01:05→10:10)
--- NOTE | 2020-02-08 01:06 | NUR ---
RECEIVED CALL FROM LAB AT 00:51. PTT 76.3. HEPARIN DRIP TITRATED ORDERED. WILL CONTINUE TO MONITOR.
--- NOTE | 2020-02-08 01:54 | NUR ---
PATIENT IN BED SLEEPING. O2 IN PLACE. RESPIRATIONS EVEN AND UNLABORED. NO S/SX OF DISTRESS NOTED. WILL CONTINUE TO MONITOR.
[2020-02-08 04:00] VITALS: BP 96/49
--- NOTE | 2020-02-08 04:01 | NUR ---
PATIENT SLEEPING IN BED. HOB ELEVATED. O2 SAT 96%. NO S/SX OF DISTRESS. SAFETY MEASURES IN PLACE. WILL CONTINUE TO MONITOR.
[2020-02-08] MEDS: MIDODRINE 5 MG TAB PO SCH ×4 (05:02→23:18)
--- NOTE | 2020-02-08 05:16 | NUR ---
VITAL SIGNS STABLE. SCHEDULED MEDICATION GIVEN ORDERED. NO S/SX OF DISCOMFORT. IVF INFUSING WELL. FC DRAINING WELL. PATIENT KEPT SAFE AND COMFORTABLE. WILL CONTINUE TO MONITOR.
--- NOTE | 2020-02-08 07:00 | NUR ---
RECEIVED PT. FROM [facility], FOR CONTINUITY OF CARE. PT. IS ASLEEP AND IN BED. PT. HAS RESPIRATION EVEN AND UNLABORED WITH O2 6L VIA OXIMIZER. PT WITH 2 IV, L HAND 24G INFUSING HEP DRIP WITH RATE OF 10.2ML/HR. RA 20G ON SALINE LOCKED. DROPLET, CONTACT ISOLATION FOR COVID19 POSITIVE. PT SOFT WRIST RESTRAINTS ON R HAND D/T PULLING LINES. PRESSURE ULCER ON SACRAL AREA WITH OPTIFOAM DRESSING. ESQUEDA CATH DRAINING YELLOW URINE. FALL, ASPIRATION, WOUND PRECAUTIONS IN PLACE. BED IN LOW POSITION. BED ALARM ON. CALL LIGHT AT BEDSIDE. WILL CONTINUE TO MONITOR.
--- NOTE | 2020-02-08 07:07 | NUR ---
ENDORSED TO DAYSHIFT NURSE FOR CONTINUITY OF CARE. PATIENT IN STABLE CONDITION.
[2020-02-08 08:00] VITALS: BP 139/66
--- NOTE | 2020-02-08 09:00 | NUR ---
MORNING MEDICATIONS GIVEN. NO SIGNS OF DISTRESS NOTED. WILL CONTINUE TO MONITOR.
[2020-02-08] MEDS: FAMOTIDINE 20 MG/2 ML VIAL IVP SCH (09:04)
[2020-02-08] MEDS: HYDROXYCHLOROQUINE 200 MG TAB PO SCH (09:05)
--- NOTE | 2020-02-08 09:10 | NUR ---
V/S TAKEN WITH BP 139/66, HR 78, O2 STAT OF 99% AND TEMP OF 98.5. PT. VERBALIZES NO PAIN. WILL CONTINUE TO MONITOR.
--- NOTE | 2020-02-08 09:20 | NUR ---
PT. IS CLEANED, CHANGED AND TURNED. SACRAL PRESSURE WOUND SEEN BY WOUND CARE NURSEARELIS. PRESSURE WOUND CLEANED AND DRESSING CHANGED. NEW ORDERS TO GIVE THERAHONEY GEL AND HYDRAGUARD FOR PT'S WOUND. PLAN OF WOUND CARE DISCUSSED WITH WOUND CARE NURSE. WILL FOLLOW THROUGH.
--- NOTE | 2020-02-08 09:57 | NUR ---
WOUND CARE EVALUATION NOTE: PT. ADMITTED WITH UN-STAGEABLE PRESSURE ULCER TO SACRALCOCCYX 2X1CM AND LEFT BUTTOCK 2X1.5 CM BOTH WOUND BEDS COVER WITH 100% YELLOW/ BROWN SOFT SLOUGH TISSUE, BRENDEN WOUND SKIN DENUDED, WOUND EDGE MERGED, WOUND BED DRY AND NO ODOR. RIGHT BUTTOCK WITH PARTIAL THICKNESS SKIN LOSS 2.5X1.5XCM SUPERFICIAL DEPTH FROM HEALING SCAR, RIGHT BUTTOCK WOUND BED COVER WITH 100% GRANULATION TISSUE, BRENDEN WOUND SKIN DENUDED, WOUND EDGE FLAT, WOUND BED MOIST NO ODOR. PERINEUM MOISTURE ASSOCIATE DERMATITIS SKIN RED AND INTACT, BILATERAL HEELS DRY THIC CALLUSES. POC DISCUSSED WITH PRIMARY RN AND PT. RECOMMENDATIONS: -CLEANSE SACRALCOCCYX, RIGHT AND LEFT BUTTOCKS WITH NS, PAT DRY, APPLY THERAHONEY GEL AND COVER WITH DRY DRESSING QD AND PRN SOILING -CLEANSE PERINEUM MAD WITH SOAP AND WATER, PAT DRY, APPLY HYDRAGUARD BID AND PRN IF SOILING -OFFLOAD BILATERAL HEELS BY PLACING PILLOWS UNDER CALVES UNLESS OTHERWISE CONTRAINDICATED -PRESSURE REDISTRIBUTION SURFACE THERAPY -TURN AND REPOSITION Q2H, OFFLOAD SACRALCOCCYX BY TURNING RIGHT AND LEFT -CONTINUE TO FOLLOW RD RECOMMENDATIONS ALL ABOVE RECOMMENDATIONS DISCUSSED WITH PRIMARY RN WILL FOLLOW UP PT Q7-10 DAYS. PLEASE CONTACT WOUND CARE NURSE FOR ANY QUESTION AND CHANGE OF WOUND CONDITION.
[2020-02-08 10:27] LABS: ANION GAP 14.6 (8-16); CARBON DIOXIDE 24.7 mmol/L (21-32); CHLORIDE 110 mmol/L (98-107); CREATININE 1.4 mg/dL (0.6-1.3); GLUCOSE 324 mg/dL (74-106); POTASSIUM 4.3 mmol/L (3.5-5.1); SODIUM SERUM 145 mmol/L (136-145)
[2020-02-08 10:39] LABS: BASOPHILS % (AUTO) 0.1 % (0.0-2.0); EOSINOPHILS % (AUTO) 0.3 % (0.0-4.0); HEMATOCRIT 23.8 % (36-48); HEMOGLOBIN 7.4 g/dL (12.0-16.0); LYMPHOCYTES % (AUTO) 7.9 % (20.5-51.1); MEAN CORPUSCULAR HEMOGLOBIN 28 pg (27-31); MEAN CORPUSCULAR HGB CONC 31 g/dL (33-37); MEAN CORPUSCULAR VOLUME 90.5 fL (80-94); MONOCYTES # (AUTO) 0.6 K/uL (0.8-1.0); MONOCYTES % (AUTO) 4.5 % (1.7-9.3); NEUTROPHILS # (AUTO) 10.8 K/uL (1.8-7.7); NEUTROPHILS % (AUTO) 87.2 % (42.2-75.2); PLATELET COUNT (AUTO) 359 K/uL (140-450); RED BLOOD CELL COUNT(AUTO) 2.63 MIL/uL (4.20-5.40); RED CELL DISTRIBUTION WIDTH 16.4 % (11.6-13.7); WHITE BLOOD COUNT (AUTO) 12.4 K/uL (4.8-10.8)
[2020-02-08 10:54] LABS: UREA NITROGEN, BLOOD 71 mg/dL (7-18)
[2020-02-08] MEDS ORDERED: THERAHONEY GEL 42.5 GM TP PRN (11:10)
[2020-02-08] MEDS ORDERED: HYDRAGUARD CREAM TP PRN (11:10)
[2020-02-08 11:17] LABS: MAGNESIUM 1.8 mg/dL (1.8-2.4)
--- NOTE | 2020-02-08 11:30 | NUR ---
CHANGED, CLEANED AND TURNED PT. NO SIGNS OF DISTRESS. V/S TAKEN WITH BP 106/68, HR 83, O2 STAT OF 98%, TEMP 96.6F, RR 17, AND VERBALIZES NO PAIN. WILL CONTINUE TO MONITOR.
[2020-02-08 12:00] VITALS: BP 106/78
[2020-02-08] MEDS: HYDRAGUARD CREAM TP SCH ×2 (12:55→23:18)
[2020-02-08] MEDS: THERAHONEY GEL 42.5 GM TP SCH (12:56)
[2020-02-08] MEDS: AZITHROMYCIN 250 MG TAB PO SCH (13:32)
--- NOTE | 2020-02-08 15:30 | NUR ---
PT'S NEPHEW, PACO, CALLED AND SPOKE TO DR. NAVARRO AND PATIENT. DISCUSSED PT'S PLAN OF CARE. WILL CONTINUE TO MONITOR.
[2020-02-08 16:00] VITALS: BP 116/69
[2020-02-08] MEDS ORDERED: BISACODYL 5 MG TABEC PO PRN (16:15)
[2020-02-08] MEDS ORDERED: LACTULOSE 20 GM/30 ML UDC PO PRN (16:15)
[2020-02-08] MEDS: APIXABAN 2.5 MG TAB PO SCH (16:27)
[2020-02-08] MEDS ORDERED: MAG SULF 2000 MG/WATER PREMIX 50 ML IV SCH (16:30)
[2020-02-08] MEDS: INSULIN LISPRO SLIDING SCALE 100 UNITS/ML VIAL SUBQ PRN ×2 (16:41→21:41)
--- NOTE | 2020-02-08 17:00 | NUR ---
PT. IS CHANGED AND TURNED. NO SIGNS OF DISTRESS NOTED. V/S TAKEN BP 116/69, HR 92, O2 STAT OF 96%, TEMP OF 97.3F, RR 18, AND PT. VERBALIZES NO PAIN. BLOOD GLUCOSE CHECKED WITH 448, INFORMED MD.
--- NOTE | 2020-02-08 17:05 | NUR ---
HUMALOG SUBQ GIVEN FOR BLOOD GLUCOSE OF 448. NO SIGNS OF DISTRESS NOTED. ROCEPHINE IVPB GIVEN. NO REACTION NOTED. WILL CONTINUE TO MONITOR.
--- NOTE | 2020-02-08 17:05 | NUR ---
Received call from Dr. Pineda stating that he spoke with Dr Linn and agreed to discontinue Plaquinil and Azithromycin. Order noted. Primary nurse notified.
--- NOTE | 2020-02-08 17:10 | NUR ---
NEW ORDERS FROM DR. NAVARRO OF [facility] WITH 10UNITS OF HUMALOG. WILL FOLLOW THROUGH.
[2020-02-08] MEDS: BLOOD GLUCOSE MONITORING 1 DEV DEV FS SCH ×2 (17:18→21:36)
[2020-02-08] MEDS: INSULIN LANTUS 100 UNITS/ML 10 ML VIAL SUBQ SCH (17:27)
--- NOTE | 2020-02-08 17:45 | NUR ---
INSULIN LANTUS SUBQ 10UNITS GIVEN FOR BLOOD GLUCOSE OF 448. WILL CONTINUE TO MONITOR.
[2020-02-08 20:00] VITALS: BP 118/76
--- NOTE | 2020-02-08 21:20 | NUR ---
BLOOD GLUCOSE TAKEN WITH VALUE OF 309. INSULIN COVERAGE NEEDED WITH 8 UNITS OF HUMALOG SUBQ. V/S TAKEN WITH BP 118/76, HR 86, O2 STAT OF 97%, RR 20, TEMP 97.2, AND VERBALIZES NO PAIN. WILL CONTINUE TO MONITOR.
--- NOTE | 2020-02-08 21:30 | NUR ---
INSULIN SUBQ OF 8 UNITS GIVEN FOR BLOOD GLUCOSE OF 309. NO SIGNS OF DISTRESS NOTED. WILL CONTINUE TO MONITOR.
--- NOTE | 2020-02-08 22:30 | NUR ---
PT. IS CHANGED, CLEANED AND TURNED. SACRAL PRESSURE WOUND DRESSING IS CHANGED AND MEDICATED WITH THERAHONEY GEL AND HYDRAGUARD CREAM. REINFORCED WITH OPTIFOAM. WILL CONTINUE TO MONITOR.
[2020-02-09] VITALS: BP 123/61
--- NOTE | 2020-02-09 00:16 | NUR ---
ENDORSED TO MANAGER ACQUISITION NURSE, STACI, FOR CONTINUITY OF CARE.
--- NOTE | 2020-02-09 00:17 | NUR ---
RECEIVED BEDSIDE REPORT FROM NURSE FOR CONTINUITY OF CARE. PT AWAKE IN BED. NO SIGNS OF DISTRESS. SPO2 AT 98% ON 3L O2 VIA NC. TELE MONITOR ATTACHED SAFETY MEASURES IN PLACE.
--- NOTE | 2020-02-09 02:10 | NUR ---
ROUNDING. PT ASLEEP EASILY AWOKEN. NO SIGNS OF DISTRESS NOTED. SPO02 AT 98%, EMPTIED 700ML URINE FROM ESQUEDA. YELLOW CLEAR URINE REPOSITIONED PATIENT
[2020-02-09 04:00] VITALS: BP 100/58
--- NOTE | 2020-02-09 04:09 | NUR ---
ROUNDING PATIENT IN STABLE CONDITION. NO SIGNS OF DISTRESS NOTED.
[2020-02-09] MEDS: MIDODRINE 5 MG TAB PO SCH ×4 (06:50→23:41)
[2020-02-09] MEDS: BLOOD GLUCOSE MONITORING 1 DEV DEV FS SCH ×4 (07:19→21:00)
--- NOTE | 2020-02-09 07:30 | NUR ---
RECEIVED REPORT FROM NIGHT NURSE. PLANS OF CARE DISCUSSED. PATIENT IN STABLE CONDITION. PT IN BED, EASILY AROUSABLE BY NAME OR TOUCH. NO DISTRESS NOTED. CALL LIGHT WITHIN REACH.
--- NOTE | 2020-02-09 07:30 | NUR ---
ENDORSED PATIENT TO DAYSHIFT NURSE FOR CONTINUITY OF CARE. PT RESTING. OBTAINED BS OF 183 REQUIRING 2UNITS OF INSULIN COVERAGE PER MD SLIDING SCALE
[2020-02-09] MEDS: INSULIN LISPRO SLIDING SCALE 100 UNITS/ML VIAL SUBQ PRN ×5 (07:46→22:30)
[2020-02-09 07:55] LABS: HEMATOCRIT 21.2 % (36-48); MEAN CORPUSCULAR HEMOGLOBIN 28 pg (27-31); MEAN CORPUSCULAR HGB CONC 32 g/dL (33-37); MEAN CORPUSCULAR VOLUME 89.7 fL (80-94); PLATELET COUNT (AUTO) 376 K/uL (140-450); RED BLOOD CELL COUNT(AUTO) 2.37 MIL/uL (4.20-5.40); RED CELL DISTRIBUTION WIDTH 16.1 % (11.6-13.7); WHITE BLOOD COUNT (AUTO) 12.3 K/uL (4.8-10.8)
[2020-02-09 07:58] LABS: ANION GAP 15.1 (8-16); CARBON DIOXIDE 24.2 mmol/L (21-32); CHLORIDE 112 mmol/L (98-107); CREATININE 1.2 mg/dL (0.6-1.3); GLUCOSE 203 mg/dL (74-106); POTASSIUM 4.3 mmol/L (3.5-5.1); SODIUM SERUM 147 mmol/L (136-145); UREA NITROGEN, BLOOD 54 mg/dL (7-18)
[2020-02-09 08:00] VITALS: BP 118/62
[2020-02-09 08:02] LABS: HEMOGLOBIN 6.7 g/dL (12.0-16.0)
[2020-02-09 08:08] LABS: MAGNESIUM 1.9 mg/dL (1.8-2.4); PHOSPHORUS 4.6 mg/dL (2.5-4.9)
[2020-02-09] MEDS: INSULIN LANTUS 100 UNITS/ML 10 ML VIAL SUBQ SCH (09:48)
[2020-02-09] MEDS: FAMOTIDINE 20 MG/2 ML VIAL IVP SCH (09:49)
[2020-02-09] MEDS: MULTIVITAMIN 1 TAB PO SCH (09:50)
[2020-02-09] MEDS: ASCORBIC ACID 500 MG TAB PO SCH (09:50)
[2020-02-09] MEDS: SENNA 8.6 MG TAB PO SCH (09:50)
[2020-02-09] MEDS: ZINC SULF 220 MG CAP PO SCH (09:51)
[2020-02-09] MEDS: APIXABAN 2.5 MG TAB PO SCH (09:51)
--- NOTE | 2020-02-09 10:00 | NUR ---
AM MEDICATIONS GIVEN ORDERED. NO DISTRESS NOTED. PATIENT REPOSITIONED FOR COMFORT. BUE SOFT RESTRAINTS IN PLACE. WILL CONTINUE TO MONITOR.
[2020-02-09 10:19] LABS: BASOPHILS % (MANUAL) 0 % (0-2); EOSINOPHILS % (MANUAL) 0 % (0-4); LYMPHOCYTES % (MANUAL) 13 % (20-46); METAMYELOCYTES % 3 % (0-0); MONOCYTES % (MANUAL) 10 % (5-12); MYELOCYTES % 3 % (0-0)
[2020-02-09 12:00] VITALS: BP 101/61
--- NOTE | 2020-02-09 12:15 | NUR ---
PAGED DR. BELLO IN REGARDS TO PATIENT'S ELEVATED BG 449.
--- NOTE | 2020-02-09 12:40 | NUR ---
RECEIVED ORDER TO GIVE HUMALOG 10 UNITS COVERAGE SUBQ AND 10 UNITS IVP.
[2020-02-09] MEDS: HYDRAGUARD CREAM TP SCH (13:00)
[2020-02-09] MEDS: THERAHONEY GEL 42.5 GM TP SCH (13:00)
--- NOTE | 2020-02-09 13:12 | NUR ---
HUMALOG SUBQ 10 UNITS GIVEN. IVP ORDERED IS NOT APPROPRIATE FOR THIS TIME. WILL PAGE DR. BELLO FOR CLARIFICATION.
--- NOTE | 2020-02-09 14:12 | NUR ---
STILL AWAITING FOR DR. BELLO CALL BACK.
--- NOTE | 2020-02-09 14:30 | NUR ---
IV FLUSHED TO RIGHT FOREARM. IV INFILTRATED. UNABLE TO START BLOOD TRANSFUSION AT THIS TIME. WILL REINSERT IV.
--- NOTE | 2020-02-09 15:06 | NUR ---
RECEIVED CALLBACK. MADE DR. BELLO AWARE IN REGARDS TO IVP INSULIN UNABLE TO BE GIVEN, BG 334 AT THIS TIME. RECEIVED ORDER TO GIVEN ANOTHER 10 UNITS SUBQ LISPRO NOW AND CHANGE LANTUS ORDER TO GIVE 14 UNITS START TOMORROW.
--- NOTE | 2020-02-09 15:50 | NUR ---
OBTAINED IV TO LEFT FOREARM 20G. INTACT AND PATENT. Addendum: 02/09/20 at 1833 by Justine Queen RN PLEASE IGNORE ABOVE NOTE. IT IS INCORRECT.
[2020-02-09 16:00] VITALS: BP 119/62
--- NOTE | 2020-02-09 16:00 | NUR ---
STILL UNABLE TO INSERT IV AT THIS TIME.
--- NOTE | 2020-02-09 18:00 | NUR ---
IV OBTAINED TO LEFT FOREARM WITH 20G.
--- NOTE | 2020-02-09 19:00 | NUR ---
PATIENT REMAINS STABLE. NO S/S OF DISTRESS NOTED. WILL ENDORSE TO NIGHT NURSE FOR CONTINUITY OF CARE.
--- NOTE | 2020-02-09 19:20 | NUR ---
RECEIVED BEDSIDE REPORT FROM AM SHIFT NURSE. PATIENT IS LYING IN BED RESTING WITH EYES CLOSE. NO SOB OR DISTRESS NOTED, ON 3LPM VIA OXIMIZER. IV ACCESS NOTED ON LEFT FOREARM 20 GAUGE, PATENT AND INTACT. PATIENT NOTED WITH BILATERAL SOFT WRIST RESTRAINTS. NO SKIN BREAKDOWN OR INJURY NOTED. PATIENT NOTED WITH SKIN DRESSING ON SACRAL WOUND. ESQUEDA CATHETER IN PLACE, DRAINING WELL. BED IN LOW. BED LOCKED. SAFETY MEASURES IN PLACE. CALL LIGHT PLACED WITHIN PATIENT REACH. WILL CONTINUE TO MONITOR PATIENT.
[2020-02-09 20:10] VITALS: BP 140/78
--- NOTE | 2020-02-09 20:10 | NUR ---
VITALS DONE AT THIS TIME. VISIBLE CHEST RISE AND FALL NOTED. NO DISTRESS NOTED. WILL CONTINUE TO MONITOR PATIENT.
--- NOTE | 2020-02-09 20:14 | NUR ---
RECEIVED REPORT FROM AM SHIFT. PATIENT SEEN AND ASSESSED. FOUND PATIENT ON 4L OXYMIZER WITH WITH SPO2 OF 88%. TITRATED TO 5L WITH SPO2 91%. PATIENT IS IN NO APPARENT RESPIRATORY DISTRESS AT THIS TIME. PRN TX NOT INDICATED AT THIS MOMENT. WILL CONTINUE TO MONITOR.
--- NOTE | 2020-02-09 22:30 | NUR ---
PATIENT HAD A BLOOD GLUCOSE OF 189, 2 UNITS OF REGULAR HUMALOG INSULIN GIVEN AT THIS TIME.
--- NOTE | 2020-02-09 23:25 | NUR ---
NOTICED CONSENT FOR BLOOD TRANSFUSION WAS MISSING FAMILY CONSENT AND 2 NURSE SIGNATURE. CALLED NEPHEW PACO [facility]. HE DID NOT C ENGINEER SO A VOICE MESSAGE WAS LEFT. CALLED NIMORALES KRAFT. SHE DID NOT C ENGINEER SO A VOICE MESSAGE WAS LEFT.
[2020-02-10 00:10] VITALS: BP 149/84
--- NOTE | 2020-02-10 00:15 | NUR ---
VITALS DONE AT THIS TIME. VISIBLE CHEST RISE AND FALL NOTED. WILL CONTINUE TO MONITOR PATIENT.
--- NOTE | 2020-02-10 00:30 | NUR ---
KAREN SWEENEY MD. DR. FORREST
--- NOTE | 2020-02-10 00:40 | NUR ---
NOTIFIED DR. LON RAMIREZ ABOUT THE CONSENT. HE SAID HE CANNOT HAVE ANOTHER DOCTOR SIGN UNLESS IT WAS A LIFE OR EMERGENCY, PATIENT IS OTHER LEIJA STABLE AT THE MOMENT EXCEPT FOR THE LOW HEMOGLOBIN OF 6.7. HE WANTED US TO KEEP CONTACTING THE FAMILY FOR THE CONSENT.
--- NOTE | 2020-02-10 00:55 | NUR ---
LEFT ANOTHER MESSAGE FOR [facility] TO CALL US BACK.
[2020-02-10] MEDS: HYDRAGUARD CREAM TP SCH ×2 (01:00→13:04)
--- NOTE | 2020-02-10 01:05 | NUR ---
SPOKE WITH ZAFAR KRAFT. SHE SAID SHE HAD ALREADY AGREED TO CONSENT FOR THE BLOOD TRANSFUSION EARLIER IN THE DAY WHEN SHE SPOKE TO THE NURSE AND MD. I TOLD HER THE AM SHIFT NURSE DID NOT SIGN OR WRITE IT ON THE CONSENT AND THAT I HAD TO FOLLOW UP BECAUSE I CANNOT RECEIVE THE BLOOD WITHOUT FAMILY CONSENT AND 2 NURSE SIGNATURE FOR WITNESS. SHE EXPRESSED THAT SHE WANTED TO HAVE LABS DONE BEFORE STARTING TRANSFUSION SO SHE CAN HAVE SOMETHING TO COMPARE IT TO WHEN THE LABS AFTER THE TRANSFUSION IS DONE. SHE SAID THAT THE HEMOGLOBIN OF 6.7 WAS EARLIER IN THE MORNING AND THAT IT COULD HAVE GOTTEN WORSE OR BETTER SINCE THEN. SHE CONSENTED TO THE BLOOD TRANSFUSION. I WITNESSED AND THE CHARGE NURSE VICTOR MANUEL WAS THE SECOND NURSE WITNESS. LY ALSO EXPRESSED THAT SHE WANTED TO SPEAK WITH THE MD, AND TO LEAVE A NOTE IN THE PATIENTS CHART FOR WHEN HE COMES, TO CALL HER IN REGARDS TO THE PATIENT CARE.
[2020-02-10 01:51] LABS: HEMATOCRIT 21.2 % (36-48)
[2020-02-10 01:54] LABS: HEMOGLOBIN 6.8 g/dL (12.0-16.0)
--- NOTE | 2020-02-10 01:55 | NUR ---
GIL FROM LAB CALLED WITH HEMOGLOBIN OF 6.8 AND HEMATOCRIT OF 21.2. CALLED ZAFAR MODI TO NOTIFY HER OF LAB RESULTS. SHE DID NOT TRUST CLERK SO A MESSAGE WAS LEFT TO CALL BACK.
--- NOTE | 2020-02-10 02:20 | NUR ---
BLOOD TRANSFUSION STARTED. WILL CONTINUE TO MONITOR PATIENT CLOSELY.
--- NOTE | 2020-02-10 02:30 | NUR ---
ZAFAR LY CALLED AND I INFORMED HER OF THE RESULTS FOR THE LABS AND THAT I HAD ALREADY STARTED THE BLOOD TRANSFUSION. SHE SAID OKAY AND THAT SHE WANTS TO BE NOTIFIED OF THE AM RESULTS. WILL ENDORSE TO THE AM SHIFT NURSE.
[2020-02-10 04:20] VITALS: BP 158/95
[2020-02-10] MEDS: MIDODRINE 5 MG TAB PO SCH ×4 (05:31→23:32)
--- NOTE | 2020-02-10 05:31 | NUR ---
HELD MIDODRINE FOR ELEVATED BP ABOVE PARAMETERS.
--- NOTE | 2020-02-10 05:50 | NUR ---
BLOOD TRANSFUSION DONE. NO REACTION NOTED. WILL CONTINUE TO MONITOR PATIENT.
[2020-02-10] MEDS: BLOOD GLUCOSE MONITORING 1 DEV DEV FS SCH ×4 (06:37→21:38)
[2020-02-10] MEDS: INSULIN LISPRO SLIDING SCALE 100 UNITS/ML VIAL SUBQ PRN ×4 (06:38→21:39)
--- NOTE | 2020-02-10 06:39 | NUR ---
PATIENT HAD A BLOOD GLUCOSE OF 222 WITH 4 UNITS OF REGULAR HUMALOG INSULIN GIVEN.
--- NOTE | 2020-02-10 07:04 | NUR ---
PATIENT IN STABLE CONDITION. NO DISTRESS NOTED. WILL ENDORSE TO AM SHIFT NURSE FOR CONTINUITY OF CARE.
--- NOTE | 2020-02-10 07:10 | NUR ---
RECEIVED PT FROM DOCUMENTATION IMPROVEMENT SPECIALIST NURSE, PT IS ASLEEP AND LYING ON THE BED, ON O2 OXYMIZER AT 4L, ESQUEDA CATHETER WITH 300ML DRAIN, IV LINE ON THE LEFT HAND G. 20 ON SALINE LOCK, NO SIGN OF DISTRESS NOTED AND WILL MONITOR PT.
[2020-02-10 08:00] VITALS: BP 133/67
[2020-02-10] MEDS: NACL 0.45% 1,000 ML IV SCH (10:30)
[2020-02-10] MEDS: MULTIVITAMIN 1 TAB PO SCH (10:48)
[2020-02-10] MEDS: SENNA 8.6 MG TAB PO SCH (10:48)
[2020-02-10] MEDS: FAMOTIDINE 20 MG/2 ML VIAL IVP SCH (10:48)
[2020-02-10] MEDS: ASCORBIC ACID 500 MG TAB PO SCH (10:48)
--- NOTE | 2020-02-10 10:48 | NUR ---
PT WAS GIVEN THE SCHEDULED MEDICATIONS, CRUSHED, ASPIRATION PRECAUTION ENFORCED, TOLERATED, WILL MONITOR PT
[2020-02-10] MEDS: INSULIN LANTUS 100 UNITS/ML 10 ML VIAL SUBQ SCH (10:51)
[2020-02-10] MEDS: ZINC SULF 220 MG CAP PO SCH (10:59)
[2020-02-10 11:28] LABS: BASOPHILS % (AUTO) 0.2 % (0.0-2.0); EOSINOPHILS # (AUTO) 0.1 K/uL (0-0.4); EOSINOPHILS % (AUTO) 0.5 % (0.0-4.0); HEMATOCRIT 27.7 % (36-48); HEMOGLOBIN 8.9 g/dL (12.0-16.0); LYMPHOCYTES # (AUTO) 1.3 K/uL (2.5-16.5); MEAN CORPUSCULAR HEMOGLOBIN 29 pg (27-31); MEAN CORPUSCULAR HGB CONC 32 g/dL (33-37); MEAN CORPUSCULAR VOLUME 89.6 fL (80-94); MONOCYTES # (AUTO) 0.7 K/uL (0.8-1.0); MONOCYTES % (AUTO) 5.4 % (1.7-9.3); PLATELET COUNT (AUTO) 408 K/uL (140-450); RED BLOOD CELL COUNT(AUTO) 3.09 MIL/uL (4.20-5.40); RED CELL DISTRIBUTION WIDTH 15.5 % (11.6-13.7)
[2020-02-10 11:34] LABS: HEMATOCRIT 27.7 % (36-48); HEMOGLOBIN 8.9 g/dL (12.0-16.0)
--- NOTE | 2020-02-10 11:36 | NUR ---
PT WAS GIVEN 2 UNITS INSULIN FOR THE BLOOD GLUCOSE OF 175, MIDODRINE WAS HELD DUE TO BP IS 159/89, PULSE IS 90, WILL MONITOR PT.
[2020-02-10 11:38] LABS: ANION GAP 12.1 (8-16); CARBON DIOXIDE 29.4 mmol/L (21-32); CHLORIDE 112 mmol/L (98-107); CREATININE 1.2 mg/dL (0.6-1.3); GLUCOSE 198 mg/dL (74-106); POTASSIUM 4.5 mmol/L (3.5-5.1); SODIUM SERUM 149 mmol/L (136-145); UREA NITROGEN, BLOOD 41 mg/dL (7-18)
[2020-02-10 11:42] LABS: MAGNESIUM 1.7 mg/dL (1.8-2.4); PHOSPHORUS 3.2 mg/dL (2.5-4.9)
[2020-02-10 11:51] LABS: LYMPHOCYTES % (AUTO) 10.6 % (20.5-51.1); NEUTROPHILS % (AUTO) 83.3 % (42.2-75.2)
[2020-02-10 12:00] VITALS: BP 159/89
[2020-02-10] MEDS: THERAHONEY GEL 42.5 GM TP SCH (13:04)
--- NOTE | 2020-02-10 13:08 | NUR ---
02/10/20 RD FOLLOW UP COMPLETED PLEASE REFER TO NUTRITION ASSESSMENT UNDER CARE ACTIVITY FOR ESTIMATED NUTRITIONAL NEEDS. 1. CONTINUE CLEAR LIQUID DIET TOLERATED 2. RD TO FOLLOW-UP 2-3 DAYS, HIGH RISK CINTIA VINES RD
[2020-02-10 16:00] VITALS: BP 125/82
--- NOTE | 2020-02-10 16:57 | NUR ---
SPOKE TO DR. BELLO NOW AND INFORMED MD OF PT'S HGB VALUE FOR TODAY WHICH IS 8.9 AND MD MADE A TELEPHONE ORDER TO JUST TRANSFUSE ONE UNIT OF PACKED RED BLOOD CELLS, ACKNOWLEDGED.
--- NOTE | 2020-02-10 17:13 | NUR ---
PT WAS GIVEN INSULIN 10 UNITS ON THE ABDOMEN, FOR THE BLOOD GLUCOSE OF 355, WILL MONITOR PT
--- NOTE | 2020-02-10 19:25 | NUR ---
RECEIVED BEDSIDE REPORT FROM AM SHIFT NURSE. PATIENT IS LYING IN BED RESTING. NO SOB OR DISTRESS NOTED, ON 4LPM VIA OXIMIZER. IV SITE ON LH 20 GAUGE, PATENT AND INTACT. PATIENT NOTED WITH BILATERAL SOFT WRIST RESTRAINTS. OPTIFORM DRESSING ON SACRAL WOUND. ESQUEDA CATHETER IN PLACE, DRAINING WELL. BED IN LOW. BED LOCKED. SAFETY MEASURES IN PLACE. CALL LIGHT PLACED WITHIN PATIENT REACH. WILL CONTINUE TO MONITOR PATIENT.
[2020-02-10 20:00] VITALS: BP 110/62
[2020-02-10] MEDS ORDERED: MAG SULF 2000 MG/WATER PREMIX 50 ML IV ONE (20:20)
--- NOTE | 2020-02-10 21:40 | NUR ---
BS CHECKED, 200, GIVEN INSULIN SLIDING SCALE. GIVEN MAG OLGA LIDIA MD ORDERED. PT TOLERATED WELL.
--- NOTE | 2020-02-10 23:41 | NUR ---
GIVEN MIDODRINE MD ORDERED. PT TOLERATED WELL.
[2020-02-11] VITALS: BP 126/82
[2020-02-11] MEDS: HYDRAGUARD CREAM TP SCH ×2 (01:14→13:07)
--- NOTE | 2020-02-11 02:02 | NUR ---
PT SLEEPING IN BED COMFORTABLY. NO ACUTE DISTRESS NOTED.
[2020-02-11] MEDS: NACL 0.45% 1,000 ML IV SCH (03:13)
[2020-02-11 04:00] VITALS: BP 148/80
--- NOTE | 2020-02-11 04:02 | NUR ---
VS CHECKED, WITHIN PT'S BASELINE. CHANGE PT WITH PAINTER AND BODY MECHANIC APPRENTICE GINO. WILL CONTINUE TO MONITOR.
[2020-02-11] MEDS: MIDODRINE 5 MG TAB PO SCH (06:00)
[2020-02-11] MEDS: BLOOD GLUCOSE MONITORING 1 DEV DEV FS SCH ×3 (06:08→17:10)
--- NOTE | 2020-02-11 06:09 | NUR ---
HELD MIDODRINE D/T INCREASED BP, 148/80 PER PARAMETER, SBP>130. Addendum: 02/11/20 at 0616 by Priscila Sargent RN BS CHECKED, 222, ADMINISTERED INSULIN SLIDING SCALE.
[2020-02-11] MEDS: INSULIN LISPRO SLIDING SCALE 100 UNITS/ML VIAL SUBQ PRN ×4 (06:10→17:54)
--- NOTE | 2020-02-11 07:05 | NUR ---
RECEIVED BEDSIDE REPORT FROM NIGHTSHIFT NURSE. PT RESTING IN BED. ABLE TO MAKE SOME NEEDS KNOWN. RESPIRATIONS EVEN AND UNLABORED WITH NO SOB OR RESPIRATORY DISTRESS. SKIN WARM AND DRY TO TOUCH. IV SITE IN L HAND 20G IS CLEAN, DRY, AND INTACT. SAFETY MEASURES IN PLACE. WILL CONTINUE TO MONITOR
--- NOTE | 2020-02-11 07:19 | NUR ---
ENDORSED PT TO DAY SHIFT NURSEVALENTINE FOR CONTINUOUS CARE. PT IN STABLE CONDITION.
[2020-02-11 08:00] VITALS: BP 133/69
[2020-02-11] MEDS: INSULIN LANTUS 100 UNITS/ML 10 ML VIAL SUBQ SCH (08:44)
[2020-02-11] MEDS: FAMOTIDINE 20 MG/2 ML VIAL IVP SCH (08:48)
[2020-02-11 08:49] LABS: BASOPHILS % (AUTO) 0.4 % (0.0-2.0); EOSINOPHILS # (AUTO) 0.1 K/uL (0-0.4); EOSINOPHILS % (AUTO) 1.1 % (0.0-4.0); HEMATOCRIT 30.3 % (36-48); HEMOGLOBIN 9.8 g/dL (12.0-16.0); LYMPHOCYTES # (AUTO) 1.3 K/uL (2.5-16.5); LYMPHOCYTES % (AUTO) 11.5 % (20.5-51.1); MEAN CORPUSCULAR HEMOGLOBIN 29 pg (27-31); MEAN CORPUSCULAR HGB CONC 33 g/dL (33-37); MEAN CORPUSCULAR VOLUME 89.1 fL (80-94); MONOCYTES # (AUTO) 0.7 K/uL (0.8-1.0); MONOCYTES % (AUTO) 5.9 % (1.7-9.3); NEUTROPHILS % (AUTO) 81.1 % (42.2-75.2); PLATELET COUNT (AUTO) 370 K/uL (140-450); RED CELL DISTRIBUTION WIDTH 15.6 % (11.6-13.7); WHITE BLOOD COUNT (AUTO) 11.1 K/uL (4.8-10.8)
[2020-02-11] MEDS: ZINC SULF 220 MG CAP PO SCH (08:49)
[2020-02-11] MEDS: SENNA 8.6 MG TAB PO SCH (08:49)
[2020-02-11] MEDS: MULTIVITAMIN 1 TAB PO SCH (08:50)
[2020-02-11] MEDS: ASCORBIC ACID 500 MG TAB PO SCH (08:50)
[2020-02-11 09:03] LABS: MAGNESIUM 1.8 mg/dL (1.8-2.4); PHOSPHORUS 3.1 mg/dL (2.5-4.9)
--- NOTE | 2020-02-11 09:05 | NUR ---
ADMINISTERED SCHED MED PRESCRIBED PER MD ORDER. PT TOLERATED WELL. MEDICATION EDUCATION PERFORMED. PT VERBALIZED UNDERSTANDING. SAFETY MEASURES IN PLACE. WILL CONTINUE TO MONITOR
[2020-02-11 09:07] LABS: ANION GAP 11.4 (8-16); CARBON DIOXIDE 28.3 mmol/L (21-32); CHLORIDE 110 mmol/L (98-107); CREATININE 1.1 mg/dL (0.6-1.3); GLUCOSE 203 mg/dL (74-106); POTASSIUM 3.7 mmol/L (3.5-5.1); SODIUM SERUM 146 mmol/L (136-145); UREA NITROGEN, BLOOD 32 mg/dL (7-18)
--- NOTE | 2020-02-11 11:30 | NUR ---
PT BLOOD SUGAR IS 336. INSULIN WILL BE ADMINISTERED PRESCRIBED PER MD ORDER WITH MEAL. PT TOLERATED WELL. SAFETY MEASURES IN PLACE. WILL CONTINUE TO MONITOR
[2020-02-11 12:00] VITALS: BP 150/75
[2020-02-11] MEDS ORDERED: LANTUS SUBQ (12:05)
[2020-02-11] MEDS ORDERED: SENN-74 PO (12:05)
[2020-02-11] MEDS ORDERED: BISA5TAB79 PO (12:05)
[2020-02-11] MEDS ORDERED: MULT-405 PO (12:05)
[2020-02-11] MEDS ORDERED: VITC500 PO (12:05)
[2020-02-11] MEDS ORDERED: ZINC220C28 PO (12:05)
--- NOTE | 2020-02-11 12:14 | NUR ---
ADMINISTERED SCHED MED PRESCRIBED PER MD ORDER. PT TOLERATED WELL. MEDICATION EDUCATION PERFORMED. PT VERBALIZED UNDERSTANDING. SAFETY MEASURES IN PLACE. WILL CONTINUE TO MONITOR
[2020-02-11] MEDS: THERAHONEY GEL 42.5 GM TP SCH (13:07)
--- NOTE | 2020-02-11 13:07 | NUR ---
ADMINISTERED SCHED MED PRESCRIBED PER MD ORDER. PT TOLERATED WELL. MEDICATION EDUCATION PERFORMED. PT VERBALIZED UNDERSTANDING. SAFETY MEASURES IN PLACE. WILL CONTINUE TO MONITOR
[2020-02-11] MEDS ORDERED: CEFT1SOL1 IV (14:40)
--- NOTE | 2020-02-11 15:00 | NUR ---
PT RESTING IN BED. ABLE TO MAKE NEEDS KNOWN. RESPIRATIONS EVEN AND UNLABORED WITH NO SOB OR RESPIRATORY DISTRESS. SKIN WARM AND DRY TO TOUCH. SAFETY MEASURES IN PLACE. WILL CONTINUE TO MONITOR
[2020-02-11 16:00] VITALS: BP 145/70
--- NOTE | 2020-02-11 16:30 | NUR ---
PT BLOOD SUGAR IS 288. INSULIN WILL BE ADMINISTERED PRESCRIBED PER MD ORDER WITH MEAL. PT TOLERATED WELL. SAFETY MEASURES IN PLACE. WILL CONTINUE TO MONITOR
--- NOTE | 2020-02-11 16:46 | NUR ---
ST CLARIFICATION NOTE BEDSIDE SWALLOW EVAL DONE. REC TO ADVANCE PO DIET FROM CLEAR LIQUIDS TO MSFC FOOD AND THIN LIQUIDS, CUP OR STRAW OKAY. Pt HAS MINIMAL TOP AND MODERATE BOTTOM DENTITION PRESENT, IMPACTING MASTICATION OF TEXTURES GREATER THAN MSFC. ASPIRATION PRECAUTIONS, ORAL CARE, TRAY SET UP, AND FEEDING ASSISTANCE NEEDED. D/C SKILLED ST. Pt HAS FUNCTIONAL SWALLOW FOR PLOF.
--- NOTE | 2020-02-11 17:15 | NUR ---
ADMINISTERED SCHED MED PRESCRIBED PER MD ORDER. PT TOLERATED WELL. MEDICATION EDUCATION PERFORMED. PT VERBALIZED UNDERSTANDING. SAFETY MEASURES IN PLACE. WILL CONTINUE TO MONITOR
--- NOTE | 2020-02-11 18:20 | NUR ---
REPORT GIVEN TO [facility] AT [facility]. NURSE VERBALIZED UNDERSTANDING AND READ BACK INFORMATION. PT IS AWARE OF DISCHARGE. SAFETY MEASURES IN PLACE. WILL CONTINUE TO MONITOR
[2020-02-11 18:34] VITALS: BP 145/70
--- NOTE | 2020-02-11 19:15 | NUR ---
RECEIVED PATIENT IN STABLE CONDITION FOR CONTINUITY OF CARE. PATIENT IS TO BE DISCHARGED UPON [facility]AL OF [facility]. RESPIRATIONS EVEN, UNLABORED. SKIN WARM/DRY. IV SITE LEFT HAND 20G PATENT/INTACT, INFUSING FLUIDS WELL. ESQUEDA CATHETER PATENT WITH YELLOW URINE DRAINING TO GRAVITY. SAFETY PRECAUTIONS IN PLACE. ISOLATION PRECAUTIONS OBSERVED BY ALL STAFF. CALL LIGHT WITHIN REACH. WILL CONTINUE TO MONITOR.
--- NOTE | 2020-02-11 19:15 | NUR ---
ENDORSED AT BEDSIDE WITH NIGHTSHIFT NURSE. PT IS STABLE
--- NOTE | 2020-02-11 19:31 | NUR ---
PATIENT DISCHARGED VIA GURNEY WITH [facility] IN STABLE CONDITION. ALL BANDS REMOVED. IV SITE PATENT/INTACT. DISCHARGE PAPERS GIVEN.
== END 2020-02-11 19:30 | DRG 871 ==
LOC: MED 01:30 → EEVIPCON 04:07 → MTU 04:07 → MMU 05:10
PROVIDERS: ADMIT Hospitalist; ATTEND Hospitalist
PROC: 30233N1 Transfusion of Nonautologous Red Blood Cells into Peripheral Vein, Percutaneous Approach (ICD-10-PCS; principal; 2020-02-10)
DX: A41.9 Sepsis, unspecified organism (principal); U07.1 COVID-19; J96.01 Acute respiratory failure with hypoxia; E43 Unspecified severe protein-calorie malnutrition; J12.89 Other viral pneumonia; N17.9 Acute kidney failure, unspecified; N39.0 Urinary tract infection, site not specified; R47.01 Aphasia; N18.9 Chronic kidney disease, unspecified; B96.4 Proteus (mirabilis) (morganii) as the cause of diseases classified elsewhere; E03.9 Hypothyroidism, unspecified; E66.9 Obesity, unspecified; E78.5 Hyperlipidemia, unspecified; F32.9 Major depressive disorder, single episode, unspecified; Y95 Nosocomial condition; Z74.01 Bed confinement status; Z87.440 Personal history of urinary (tract) infections; Z88.5 Allergy status to narcotic agent; Z99.3 Dependence on wheelchair; E11.22 Type 2 diabetes mellitus with diabetic chronic kidney disease; Z68.35 Body mass index [BMI] 35.0-35.9, adult; Z88.8 Allergy status to other drugs, medicaments and biological substances; I12.9 Hypertensive chronic kidney disease with stage 1 through stage 4 chronic kidney disease, or unspecified chronic kidney disease
CPT/HCPCS: 36415; 36600; 51702; 71045; 76770; 78582; 80048; 80053; 81001; 82550; 82728; 82803; 82948; 83036; 83605; 83615; 83735; 83880; 84100; 84300; 84443; 84484; 85018; 85025; 85379; 85384; 85610; 85730; 86140; 86886; 86900; 86901; 86920; 87040; 87081; 87086; 87186; 87420; 87804; 92610; 93005; 93970; 96361; 96365; 96367; 99291; J0171; J0456; J0696; J1644; J1815; J1956; J2543; J3475; J3490; J7030; J7060; J7120; P9016; Q0092